=== PATIENT | female | born 1955 | race Caucasian/White ===

== ENCOUNTER 2023-12-13 15:59 | Emergency (ER) | payer OTHER, BC ==
[2023-12-13 16:07] VITALS: BP 124/83; PULSE 93; RESP 18; TEMP 98; BMI 28.1
[2023-12-13] MEDS ORDERED: ALBUTEROL SO4 2.5/IPRATROPIUM 0.5 INH SOL 3 ML VIAL.NEB. NEB ONE (16:54)
[2023-12-13] MEDS ORDERED: ONDANSETRON 4 MG/2 ML VIAL ONE (16:55)
[2023-12-13 17:00] LABS: BASO % 0.4 % (0-2.0); EOS % 0.4 % (0-4.5); HEMATOCRIT 44.3 % (32.4-45.2); HEMOGLOBIN 14.4 GM/dL (10.7-15.3); LYMPH % 3.2 % (8-40); MCH 29.6 pg (25.7-33.7); MCHC 32.6 g/dl (32.0-36.0); MEAN CELL VOLUME 90.7 fl (80-96); MEAN PLT VOLUME 9.4 fl (7.5-11.1); MONO % 7.1 % (3.8-10.2); NEUT % 88.9 % (42.8-82.8); PLATELET COUNT 218 10^3/uL (134-434); RBC 4.88 M/mm3 (3.60-5.2); RDW 15.7 % (11.6-15.6)
[2023-12-13] MEDS: ONDANSETRON 4 MG/2 ML VIAL IVPUSH ONE (17:00)
[2023-12-13] MEDS: ALBUTEROL SO4 2.5/IPRATROPIUM 0.5 INH SOL 3 ML VIAL.NEB. NEB ONE (17:00)
[2023-12-13] MEDS: SODIUM CHLORIDE 0.9% 500 ML INFUS.BAG IV ONE (17:00)
[2023-12-13 17:22] LABS: POTASSIUM 3.9 mmol/L (3.5-5.1)
[2023-12-13 17:23] LABS: CALCIUM 9.5 mg/dL (8.5-10.1)
[2023-12-13 17:24] LABS: ALBUMIN 3.6 g/dl (3.4-5.0)
[2023-12-13 17:27] LABS: CREATININE 0.8 mg/dL (0.55-1.3)
[2023-12-13 17:29] LABS: BILIRUBIN,TOTAL 0.6 mg/dL (0.2-1)
== END 2023-12-13 19:34 | disposition home or self-care (01) ==
LOC: JERFT 15:59
PROC: 3E030GC Introduction of Other Therapeutic Substance into Peripheral Vein, Open Approach (ICD-10-PCS; principal; 2023-12-13)
PROC: 3E0F7GC Introduction of Other Therapeutic Substance into Respiratory Tract, Via Natural or Artificial Opening (ICD-10-PCS; 2023-12-13)
DX: R05.9 Cough, unspecified (principal); R06.02 Shortness of breath; R53.83 Other fatigue; R51.9 Headache, unspecified; R11.0 Nausea; Z20.822 Contact with and (suspected) exposure to COVID-19
CPT/HCPCS: 0241U-QW; 36415; 71046-TC-FY; 80053; 85025; 87651; 99284-25